=== PATIENT | female | born 1970 ===

== ENCOUNTER 2017-08-15 14:52 | Emergency (ER) | payer SELFPAY ==
--- NOTE | 2017-08-15 15:36 | RAD ---
NECK SOFT TISSUES 2 VIEWS: HISTORY: Throat pain. Facial swelling. FINDINGS: Epiglottis has a normal appearance. Retropharyngeal soft tissues are unremarkable. No radiopaque fo reign bodies are apparent. Coiled tubing overlies the right side of the mandible on the frontal view. Not well localized on the lateral view. IMPRESSION: No significant abnormalities are demonstrated. POS: [facility]
[2017-08-15] MEDS ORDERED: Benzocaine 20% Spray 60 ML CAN ONE (16:03)
[2017-08-15] MEDS ORDERED: Lidocaine Viscous Sol 2% 15 ml UD Cup ONE (16:03)
--- NOTE | 2017-08-15 23:01 | CON ---
DATE OF CONSULTATION: 08/15/2017 REASON FOR CONSULTATION: Foreign body in throat. CONSULTING PHYSICIAN: ER physician. HISTORY OF PRESENT ILLNESS: Ms. Chago Galaviz is a 47-year-old female, who was e ating tilapia earlier today and was eating quickly because she had to get to work and did not take ti me to chew it and felt a bone stick in the left side of her throat. It has been persistent and is ca using her difficulty swallowing and a lot of discomfort. She presented to the ER for further evaluat ion. They were unable to find the foreign body and was asked to come in and evaluate her and resolve this problem. No other complaints or problems. PAST MEDICAL HISTORY: Negative. PAST SURGICAL HISTORY: Negative. MEDICATIONS: None. ALLERGIES TO MEDICATIONS: No known allergies. PHYSICAL EXAMINATION: Oral cavity and oropharynx shows irritation on the left tonsil. Had a very vi gorous gag reflex, lot of spit, we were able to spray air with some Hurricaine spray and get a little bit of anesthesia. On examination, after suctioning out some of spit, found a fish bone in the base of the tongue. We were able to grab it with a tonsil clamp and remove it. Her symptom resolved. S he did complain of some pain in her chest. I think that is probably due to her retching and maybe so me acid reflux. IMPRESSION: Foreign body of the pharynx, base of tongue. PLAN: Foreign body removed. No further treatment or medicines indicated.
== END 2017-08-15 18:21 | disposition home or self-care (01) ==
LOC: ERS 14:52
DX: T17.228A Food in pharynx causing other injury, initial encounter (principal)
CPT/HCPCS: 70360